=== PATIENT | male | born 1940 | race Caucasian/White ===

== ENCOUNTER → 2024-12-01 07:05 | Outpatient (REF) | payer MEDICARE, OTHER, SELFPAY | LOC: MRI 07:05 | PROVIDERS: ATTENDING PHYSICIAN Family Medicine | DX: M47.812 Spondylosis without myelopathy or radiculopathy, cervical region (principal) | CPT/HCPCS: 72141 ==

== ENCOUNTER → 2025-03-22 14:56 | Outpatient (REF) | payer MEDICARE, OTHER, SELFPAY | LOC: HWRCS 14:56 | PROVIDERS: ATTENDING PHYSICIAN Internal Medicine Cardiovascular Disease; FAMILY PHYSICIAN Internal Medicine | DX: I49.3 Ventricular premature depolarization (principal) | CPT/HCPCS: 93306 ==

== ENCOUNTER → 2025-04-07 13:54 | Outpatient (REF) | payer MEDICARE, OTHER, SELFPAY | LOC: HWRAD 13:54 | PROVIDERS: ATTENDING PHYSICIAN Internal Medicine | DX: R05.3 Chronic cough (principal) | CPT/HCPCS: 71046 ==